=== PATIENT | female | born 1950 | race Caucasian/White ===

== ENCOUNTER 2023-04-30 13:30 | Observation (INO) | payer MEDICARE ==
[2023-04-30] MEDS ORDERED: Ondansetron PF 4 MG/2 ML Vial IVP PRN (14:41)
[2023-04-30] MEDS ORDERED: Acetaminophen 325 MG TAB PO PRN (14:41)
[2023-04-30] MEDS ORDERED: Heparin 5,000 UNITS/ML VIAL SC SCH (15:00)
[2023-04-30] MEDS ORDERED: Aspirin Chewable 81 MG TAB PO SCH (15:15)
[2023-04-30 15:30] VITALS: BMI 20.3
[2023-04-30] MEDS ORDERED: Fioricet 325/50/40 mg Tablet PO SCH (16:00)
[2023-04-30 16:28] LABS: Troponin I Less than 0.010 ng/mL (< 0.028)
[2023-04-30] MEDS ORDERED: Mometasone/Formoterol 200/5 60 PUFF INH SCH (19:45)
[2023-04-30] MEDS ORDERED: Loperamide HCl 2 MG CAP PO SCH (20:00)
[2023-04-30] MEDS: Rosuvastatin 10 MG TAB PO SCH (20:43)
[2023-04-30] MEDS: FLUoxetine HCl 20 MG CAP PO SCH (20:43)
[2023-04-30] MEDS: ALPRAZolam 0.5 MG TAB PO SCH (20:43)
[2023-04-30] MEDS ORDERED: Dexamethasone 0.1% OPTH SOLN R EYE SCH (21:00)
[2023-04-30] MEDS ORDERED: Brimonidine Tartrate 0.2% Ophth Soln 5 ml Bottle R EYE SCH (21:00)
[2023-04-30] MEDS: Fioricet 325/50/40 mg Tablet PO PRN (23:45)
[2023-04-30] MEDS: Midodrine HCl 5 MG TAB PO SCH (23:45)
[2023-05-01] MEDS ORDERED: LOTEPREDNOL 0.5% R EYE SCH ×2 (01:00→21:00)
[2023-05-01 04:52] LABS: #Eosinphils 0.1 10x3/uL (0.0-0.5); #Monocytes 0.4 10x3/uL (0.0-1.1); #Neutrophils 1.8 10x3/uL (1.5-8.4); %Basophils 0.5 % (0.0-2.0); %Eosinophils 2.8 % (0.0-6.0); %Lymphocytes 42.7 % (18.0-47.0); %Monocytes 10.2 % (0.0-10.0); %Neutrophils 43.6 % (40.0-75.0); Hematocrit 31.3 % (34.9-44.5); Hemoglobin 10.2 g/dL (12.0-15.5); Mean Corpuscular HGB CONC 32.6 g/dL (32.0-36.0); Mean Corpuscular Hemoglobin 30.9 pg (27.0-33.0); Mean Corpuscular Volume 94.8 fl (81.6-98.3); Mean Platelet Volume 9.8 fl (7.4-10.4); Platelet Count 180 10x3/uL (150-450); RBC Distribution Width 12.7 % (11.5-14.5); White Blood Cell (WBC) Count 4.2 10x3/uL (3.5-10.5)
[2023-05-01 05:07] LABS: Anion Gap 13 mmol/L (10-20); BUN (Urea Nitrogen) 11 mg/dL (9.8-20.1); Calc. Creatinine Clearance 52 mL/min (70-130); Calcium 8.8 mg/dL (7.8-10.44); Carbon Dioxide 22 mmol/L (23-31); Cardiac Risk 2.4 (Less than 4.5); Chloride 110 mmol/L (98-107); Cholesterol 143 mg/dl (< 200 Desired); Estimated GFR 65; Glucose 90 mg/dL (80-115); HDL Cholesterol 59 mg/dL (>60 Neg Risk); LDL Cholesterol, Calculated 69 mg/dL; Potassium 3.9 mmol/L (3.5-5.1); Sodium 141 mmol/L (136-145); Triglycerides 74 mg/dL (Less than 150)
[2023-05-01] MEDS: Mometasone/Formoterol 200/5 60 PUFF INH SCH ×2 (07:25→19:00)
[2023-05-01] MEDS: Aspirin Chewable 81 MG TAB PO SCH (08:24)
[2023-05-01] MEDS: ALPRAZolam 0.5 MG TAB PO SCH ×2 (08:24→21:03)
[2023-05-01] MEDS: Midodrine HCl 5 MG TAB PO SCH ×3 (08:24→21:02)
[2023-05-01] MEDS: TIMOLOL R EYE SCH ×2 (08:27→21:04)
[2023-05-01] MEDS: BRIMONIDINE R EYE SCH ×2 (08:27→21:06)
[2023-05-01] MEDS: DORZOLAMIDE R EYE SCH ×2 (08:27→21:04)
[2023-05-01] MEDS ORDERED: Iopamidol 300 61% 100 ML VIAL FS ONE (08:30)
[2023-05-01] MEDS ORDERED: Heparin 10,000 UNITS/ 10 ML VIAL ONE (08:54)
[2023-05-01] MEDS ORDERED: Adenosine 6 MG/2 ML VIAL ONE (08:54)
[2023-05-01] MEDS ORDERED: Atropine Sulfate 1 mg/1 ml Vial ONE (08:54)
[2023-05-01] MEDS ORDERED: Nitroglycerin 50 MG/250 ML BOT 250 ML ONE (08:54)
[2023-05-01] MEDS ORDERED: Lidocaine 1% (PF) 30 ML VIAL ONE (08:54)
[2023-05-01] MEDS: Fioricet 325/50/40 mg Tablet PO PRN (09:40)
[2023-05-01] MEDS ORDERED: fentaNYL 50 mcg/mL 1 mL Vial ONE ×2 (12:07→12:28)
[2023-05-01] MEDS ORDERED: Midazolam HCl 2 mg/2 ml Vial ONE ×2 (12:07→12:28)
[2023-05-01] MEDS ORDERED: Acetaminophen/Codeine 30-300mg Tablet PO PRN ×2 (13:21)
[2023-05-01] MEDS ORDERED: Sodium Chloride 0.9% 200 ML IV PRN (13:21)
[2023-05-01] MEDS ORDERED: Nitroglycerin 0.4 MG TAB (25 Tab Bottle) SL PRN (13:21)
[2023-05-01 14:55] LABS: Hemoglobin A1c 5.3 % (4.0-6.0)
[2023-05-01] MEDS: NIFEdipine XL 30 MG ER.TAB PO SCH ×2 (15:16→16:00)
[2023-05-01] MEDS: FLUoxetine HCl 20 MG CAP PO SCH (21:02)
[2023-05-01] MEDS: Rosuvastatin 10 MG TAB PO SCH (21:03)
[2023-05-02] MEDS: Mometasone/Formoterol 200/5 60 PUFF INH SCH (08:50)
[2023-05-02] MEDS ORDERED: NIFEdipine XL 30 MG ER.TAB PO SCH (09:00)
[2023-05-02] MEDS: Aspirin Chewable 81 MG TAB PO SCH (10:00)
[2023-05-02] MEDS: ALPRAZolam 0.5 MG TAB PO SCH (10:00)
[2023-05-02] MEDS: BRIMONIDINE R EYE SCH (10:02)
[2023-05-02] MEDS: TIMOLOL R EYE SCH (10:04)
[2023-05-02] MEDS: DORZOLAMIDE R EYE SCH (10:04)
[2023-05-02] MEDS: Midodrine HCl 5 MG TAB PO SCH (10:52)
[2023-05-02 12:28] VITALS: BP 102/65; TEMP 97.4
== END 2023-05-02 13:00 | disposition home or self-care (01) ==
LOC: CSHTELE 14:31
PROVIDERS: ADMIT Internal Medicine; ATTEND Internal Medicine
PROC: 4A023N7 Measurement of Cardiac Sampling and Pressure, Left Heart, Percutaneous Approach (ICD-10-PCS; principal; 2023-05-01)
PROC: B210YZZ Fluoroscopy of Single Coronary Artery using Other Contrast (ICD-10-PCS; 2023-05-01)
DX: R07.9 Chest pain, unspecified (principal); I25.110 Atherosclerotic heart disease of native coronary artery with unstable angina pectoris; E78.5 Hyperlipidemia, unspecified; I95.9 Hypotension, unspecified; J45.909 Unspecified asthma, uncomplicated; F32.A Depression, unspecified; F41.9 Anxiety disorder, unspecified; Z95.5 Presence of coronary angioplasty implant and graft; Z87.891 Personal history of nicotine dependence; Z79.82 Long term (current) use of aspirin; Z88.1 Allergy status to other antibiotic agents; Z88.2 Allergy status to sulfonamides; Z95.0 Presence of cardiac pacemaker; Z79.899 Other long term (current) drug therapy
CPT/HCPCS: 80048; 80061; 83036; 84443; 84484; 85025; 93005; 93306; 93458; 94640 ×3; 94664 ×2; 97116; C1760; C1769; C1887; C1894; G0378 ×3; J3010; 36415; 93010; 99152; J0153; J0461; J1644; J2001; J2250; Q9967